=== PATIENT | female | born 1980 | race Caucasian/White ===

== ENCOUNTER 2017-11-10 11:57 | Outpatient (CLI) | payer OTHER | END 2017-11-10 11:58 | disposition home or self-care (01) | LOC: LAB.R 11:57 | PROVIDERS: ATTEND Registered Nurse | DX: Z36.9 Encounter for antenatal screening, unspecified (principal) | CPT/HCPCS: 87491; 87591 ==

== ENCOUNTER 2017-11-10 12:16 | Outpatient (CLI) | payer OTHER ==
[2017-11-10 12:57] LABS: BILIRUBIN,URINE NEGATIVE (NEGATIVE); GLUCOSE, URINE (UA) NEGATIVE (NEGATIVE); KETONES,URINE (UA) NEGATIVE (NEGATIVE); LEUKOCYTE ESTERASE, URINE NEGATIVE (NEGATIVE); NITRITE,URINE NEGATIVE (NEGATIVE); OCCULT BLOOD,URINE NEGATIVE (NEGATIVE); PH,URINE 6.5 PH (5.0-7.5); PROTEIN,URINE NEGATIVE (NEGATIVE); UROBILINOGEN,URINE 0.2 (NORMAL) E.U./dL (NORMAL)
[2017-11-10 12:59] LABS: BASOPHILS % (AUTO) 0.4 %; EOSINOPHILS % (AUTO) 0.4 %; HGB - HEMOGLOBIN 12.8 g/dL (12.0-16.0); LYMPHOCYTES # (AUTO) 1.9 10^3/uL (1.5-3.5); LYMPHOCYTES % (AUTO) 31.4 %; MEAN CORPUSCULAR HEMOGLOBIN 30.7 pg (27.0-31.0); MEAN CORPUSCULAR HGB CONC 34.5 g/dL (32.0-36.0); MEAN CORPUSCULAR VOLUME 88.9 fL (81.0-99.0); MEAN PLATELET VOLUME 7.9 fL (7.9-10.8); MONOCYTES # (AUTO) 0.3 10^3/uL (0.0-1.0); MONOCYTES % (AUTO) 5.4 %; NEUTROPHILS # (AUTO) 3.7 10^3/uL (1.5-6.6); NEUTROPHILS % (AUTO) 62.4 %; PLT - PLATELET COUNT 210 10^3/uL (130-450); RED BLOOD COUNT 4.18 10^6/uL (4.20-5.40); RED CELL DISTRIBUTION WIDTH 13.4 % (12.0-15.0); WHITE BLOOD COUNT 5.9 x10^3/uL (4.8-10.8)
[2017-11-10 13:04] LABS: BACTERIA,URINE Rare /HPF (None Seen); CLARITY,URINE CLEAR (CLEAR); RBC,URINE 0-5 /HPF (0-5); SQUAMOUS EPITHELIAL CELL,UR FEW Squamous (<= Few)
[2017-11-10 13:25] LABS: ALBUMIN 3.8 g/dL (3.2-5.5); ALBUMIN/GLOBULIN RATIO 1.1 (1.0-2.2); BILIRUBIN,TOTAL 0.4 mg/dL (0.2-1.0); CALCIUM 8.7 mg/dL (8.5-10.3); CREATININE 0.5 mg/dL (0.4-1.0); TOTAL PROTEIN 7.4 g/dL (6.7-8.2)
[2017-11-11 10:51] LABS: PROGESTERONE 35.3 ng/mL
[2017-11-11 12:41] LABS: HIV AG/AB 4TH GEN NON-REACTIVE (NON-REACTIVE)
[2017-11-11 15:26] LABS: HEPATITIS B SURFACE ANTIGEN NON-REACTIVE (NON-REACTIVE)
== END 2017-11-10 12:17 | disposition home or self-care (01) ==
LOC: LAB 12:16
PROVIDERS: ATTEND Registered Nurse
DX: E83.01 Wilson's disease (principal); Z36.9 Encounter for antenatal screening, unspecified
CPT/HCPCS: 36415; 80053; 81001; 81599; 82525; 82672; 84144; 84630; 85025; 86592; 86762; 86850; 86900; 86901; 87340; 87389

== ENCOUNTER 2017-11-17 13:56 | Outpatient (CLI) | payer OTHER | END 2017-11-17 13:57 | disposition home or self-care (01) | LOC: LAB 13:56 | PROVIDERS: ATTEND Registered Nurse | DX: Z01.89 Encounter for other specified special examinations (principal); E83.01 Wilson's disease | CPT/HCPCS: 36415 ==

== ENCOUNTER 2017-12-19 13:43 | Outpatient (CLI) | payer OTHER ==
[2017-12-19 14:10] LABS: BASOPHILS % (AUTO) 0.2 %; EOSINOPHILS # (AUTO) 0.1 10^3/uL (0.0-0.7); EOSINOPHILS % (AUTO) 0.7 %; HGB - HEMOGLOBIN 13.6 g/dL (12.0-16.0); LYMPHOCYTES # (AUTO) 1.6 10^3/uL (1.5-3.5); LYMPHOCYTES % (AUTO) 14.6 %; MEAN CORPUSCULAR HGB CONC 34.6 g/dL (32.0-36.0); MEAN CORPUSCULAR VOLUME 89.7 fL (81.0-99.0); MEAN PLATELET VOLUME 7.4 fL (7.9-10.8); MONOCYTES # (AUTO) 0.6 10^3/uL (0.0-1.0); MONOCYTES % (AUTO) 5.4 %; NEUTROPHILS # (AUTO) 8.5 10^3/uL (1.5-6.6); NEUTROPHILS % (AUTO) 79.1 %; PLT - PLATELET COUNT 246 10^3/uL (130-450); RED CELL DISTRIBUTION WIDTH 13.4 % (12.0-15.0); WHITE BLOOD COUNT 10.8 x10^3/uL (4.8-10.8)
[2017-12-19 14:25] LABS: ALBUMIN 3.5 g/dL (3.2-5.5); BILIRUBIN,DIRECT 0.1 mg/dL (0.1-0.5); BILIRUBIN,TOTAL 0.7 mg/dL (0.2-1.0); CREATININE 0.6 mg/dL (0.4-1.0); TOTAL PROTEIN 7.7 g/dL (6.7-8.2)
== END 2017-12-19 13:44 | disposition home or self-care (01) ==
LOC: LAB 13:43
PROVIDERS: ATTEND Internal Medicine Gastroenterology
DX: E83.01 Wilson's disease (principal)
CPT/HCPCS: 36415; 80076; 82525; 82565; 85025

== ENCOUNTER 2018-01-11 09:24 | Outpatient (CLI) | payer OTHER ==
--- NOTE | 2018-01-13 13:25 | Ultrasound Report ---
OB DETAILED ANATOMIC SCREENIN01/11/2018 COMPARISON: None. INDICATION: Anatomic screen. TECHNIQUE: Real-time scanning was performed with media sales representative static images obtained. LAST MENSTRUAL PERIOD 09/06/2017 Clinical Age 18 weeks 1 day US Age 18 weeks 0 days EFW [place] 217 grams EFW% Hadlock 33% Heart Rate 152 bpm EDC 06/13/2018 US EDC 06/14/2018 BPD [place] 17 weeks 6 days; Mean mm 39 HC [place] 18 weeks 3 days; Mean mm 155 AC [place] 18 weeks 1 day; Mean mm 125 FL [place] 17 weeks 5 days; Mean mm 25 Presentation -- Placental Location anterior L Cervical Length 4.8 cm Amniotic Fluid 13.5 cm; subjectively normal; MVP 3.9 cm FINDINGS The following structures were visualized and have a normal appearance: Choroid plexus, lateral ventricles, midline falx, cavum septum pellucidum, cisterna magna, cerebellum, nuchal fold, nasal bone, coronal face, nose, lips, open hands, cardiac situs, 4 chamber heart , left and right ventricular outflow tracts, stomach and situs, heart, stomach, bladder, diaphragm, kidneys, bladder, cord insertion, spine, upper and lower extremities, bilateral leg foot relationships. Maternal structures appear unremarkable, uterus, cervix, adnexa. No free fluid. Cervical length, 4.8 cm. IMPRESSION: SINGLE VIABLE INTRAUTERINE WITH SIZE CONCORDANT WITH DATES. NO ANOMALIES. TD: 01/11/2018 11:34 MTDD
== END 2018-01-11 09:25 | disposition home or self-care (01) ==
LOC: DI 09:24
PROVIDERS: ATTEND Registered Nurse
DX: Z36.9 Encounter for antenatal screening, unspecified (principal)
CPT/HCPCS: 76811

== ENCOUNTER 2018-02-28 08:00 | Outpatient (CLI) | payer OTHER | END 2018-02-28 08:01 | disposition home or self-care (01) | LOC: LAB.R 08:00 | PROVIDERS: ATTEND Internal Medicine Gastroenterology | DX: E83.01 Wilson's disease (principal) | CPT/HCPCS: 81599; 82525 ==

== ENCOUNTER 2018-03-16 13:59 | Outpatient (CLI) | payer OTHER ==
[2018-03-16 15:29] LABS: HGB - HEMOGLOBIN 11.9 g/dL (12.0-16.0); MEAN CORPUSCULAR HEMOGLOBIN 31.7 pg (27.0-31.0); MEAN CORPUSCULAR HGB CONC 33.9 g/dL (32.0-36.0); MEAN CORPUSCULAR VOLUME 93.7 fL (81.0-99.0); MEAN PLATELET VOLUME 7.4 fL (7.9-10.8); RED BLOOD COUNT 3.75 10^6/uL (4.20-5.40); RED CELL DISTRIBUTION WIDTH 13.1 % (12.0-15.0); WHITE BLOOD COUNT 8.6 x10^3/uL (4.8-10.8)
== END 2018-03-16 14:00 | disposition home or self-care (01) ==
LOC: LAB 13:59
PROVIDERS: ATTEND Registered Nurse
DX: Z34.82 Encounter for supervision of other normal pregnancy, second trimester (principal)
CPT/HCPCS: 36415; 82950; 85027; 86850

== ENCOUNTER 2018-05-02 11:55 | Outpatient (CLI) | payer OTHER ==
[2018-05-02 13:24] LABS: ALBUMIN 2.8 g/dL (3.2-5.5); ALKALINE PHOSPHATASE 126 IU/L (42-121); ALT ALANINE AMINOTRANSFERASE 12 IU/L (10-60); AST ASPARTATE AMINOTRANSFERASE 18 IU/L (10-42); BILIRUBIN,TOTAL 0.6 mg/dL (0.2-1.0); TOTAL PROTEIN 6.8 g/dL (6.7-8.2)
[2018-05-02 13:41] LABS: BILIRUBIN,DIRECT < 0.1 mg/dL (0.1-0.5)
== END 2018-05-02 11:56 | disposition home or self-care (01) ==
LOC: LAB 11:55
PROVIDERS: ATTEND Registered Nurse
DX: L29.8 Other pruritus (principal)
CPT/HCPCS: 36415; 80076; 82239

== ENCOUNTER 2018-05-10 14:39 | Outpatient (CLI) | payer OTHER ==
[2018-05-10 14:48] VITALS: BP 115/67
== END 2018-05-10 15:44 | disposition home or self-care (01) ==
LOC: WFO 14:39 → FBP 14:41 → WFO 15:44
PROVIDERS: ATTEND Nurse Practitioner Obstetrics & Gynecology
DX: O26.613 Liver and biliary tract disorders in pregnancy, third trimester (principal); K83.1 Obstruction of bile duct; Z3A.35 35 weeks gestation of pregnancy
CPT/HCPCS: 59025

== ENCOUNTER 2018-05-10 15:20 | Outpatient (CLI) | payer OTHER | END 2018-05-10 23:59 | LOC: LAB.R 15:20 | PROVIDERS: ATTEND Nurse Practitioner Obstetrics & Gynecology | DX: Z36.9 Encounter for antenatal screening, unspecified (principal) | CPT/HCPCS: 87081 ==

== ENCOUNTER 2018-05-16 15:57 | Outpatient (CLI) | payer OTHER ==
[2018-05-16 16:24] VITALS: BP 102/65
== END 2018-05-16 16:30 | disposition home or self-care (01) ==
LOC: WFO 15:57 → FBP 16:17 → WFO 16:30
PROVIDERS: ATTEND Registered Nurse
DX: O26.613 Liver and biliary tract disorders in pregnancy, third trimester (principal); K83.1 Obstruction of bile duct; Z3A.36 36 weeks gestation of pregnancy
CPT/HCPCS: 59025

== ENCOUNTER 2018-05-19 15:54 | Outpatient (CLI) | payer OTHER ==
[2018-05-19 16:17] VITALS: BP 95/53
== END 2018-05-19 16:55 | disposition home or self-care (01) ==
LOC: WFO 15:54 → FBP 15:56 → WFO 16:55
PROVIDERS: ATTEND Registered Nurse
DX: O26.613 Liver and biliary tract disorders in pregnancy, third trimester (principal); K83.1 Obstruction of bile duct; Z3A.37 37 weeks gestation of pregnancy
CPT/HCPCS: 59025

== ENCOUNTER 2018-05-23 20:52 | Inpatient (IN) | payer OTHER ==
[~2018-05-23 20:52] MED LIST: SODIUM CHLORIDE FLUSH 0.9% 10 ML SYRINGE IVP PRN
--- NOTE | 2018-05-23 22:47 | HISTORY & PHYSICAL EXAMINATION ---
Admit History - Instructions [place]/Slash: -Left hand click circles element as positive or present. -Right hand click slashes element as negative or not present. - Visit Reason Visit Reason: Other - : 4 Parity: 2 Premature: 0 Ectopic: 0 : 1 Care: positive: [facility] Risk/History: positive: ABO incompatibility, Labor induction Complications This : positive: Other Smoking Status: Never smoker - Mother's Labs Mother's Blood Type: positive: O Mother's RH: positive: Negative GBS: positive: Group B Step Negative Rubella Status: positive: Immune - Other Maternal History Other Maternal History: HPI: This 37yo presents at 37.0wks gestation by L=9wk U/S for IOL secondary to intrahepatic cholestasis in . Upon evaluation she was noted to be 1/25/-2, posterior, medium, vertex, intact membranes. She was placed in an observation status and will begin misoprostol 50mcg BC q 4 hours for cervical ripening. Dating criteria: 1.) LMP 09/06/2017 2.) First ultrasound 11/10/17 @ 9wks - agrees 3.) Serial exams 11-36 weeks - agree OB History: G1: 2010 FAVD w/ episiotomy at 39 weeks. 7#13oz male - Maykel. PPH requiring D& C G2: 2012 w/ episiotomy at 41 weeks gestation. IOL secondary to postdates . 8#9oz. Female - Vinh. G3: 2015 SAB @ 8 weeks gestation. No complications. G4: Current MEDICAL OFFICE SUPERVISOR History: Regular cycle. Menses age 11 STD's - none MEDICAL OFFICE SUPERVISOR surgeries: none Abnormal paps and treatment: 09/2017 pap HRHPV followed by colposcopy -ALEXYS-1. PMHx: Blake's Disease- Galzin 75mg PO. Von Willebrand's disease Medications: Ursodiol 300mg PO tid, PNV, Galzin 75mg PO Surgical Hx: none Family Hx: Blake's disease- mother; Maternal grandmother - Breast cancer; Paternal grandfather - diabetes mellitus. Social Hx: - Rey deployed to [place] - will return home in July. Never smoker. No ETOH or IVDA. Allergies: NKDA Physical Exam: Heart RRR w/o M/G/R, lungs CTAB Abdomen gravid, nontender FHR baseline 130s, moderate variability, + accels, no decels No contractions appreciated on toco SVE 11/24/-2, vertex, posterior, medium consistency, intact membranes. labs: Blood type O neg, antibody neg Hgb 12.8; Hct 37.2; PLT 210 Rubella immune HIV non-reactive GC/CT: negative Hep B: non-reactive RPR: non-reactive Baseline LFTs WNL [place] genetic screening negative 28 week labs: Hgb 11.9; Hct 35.1; PLT 240 Antibody negative 1 hour GTT 107 GBS negative Influenza 11/25/2017 Rhogam 03/21/2018 Tdap 04/04/2018 05/16/2018 LFTs WNL; Bile Acids 25 Ultrasounds: 01/17/18 FAS WNL, size c/w dating. Anterior placenta, no previa. Assessment: 37yo @ 37.0wks gestation by L=9wk U/S Intrahepatic cholestasis in GBS negative Desires epidural for pain management Plan: Continuous monitoring Misoprostol 50mcg BC q 4 hours for cervical ripening Will initiate pitocin per protocol when favorable cervix is reached Ambien 10mg PO tonight for sleep aid. Will suppress at delivery secondary to Galzin contraindicated for . Anticipate spontaneous vaginal delivery. Meds/Allgy - Home Medications Home Medications: Ambulatory Orders Medication Instructions Recorded Confirmed Acyclovir [Acyclovir] 400 mg ORAL TID 05/23/18 05/23/18 Pnv No.122/Iron/Folic Acid 1 each PO DAILY 05/23/18 05/23/18 [ Multi Tablet] Ursodiol 300 mg PO TID 05/23/18 05/23/18 Zinc Acetate [Galzin] 75 mg ORAL BID 05/23/18 05/23/18 hydrOXYzine HCl [Hydroxyzine HCl] 50 mg ORAL DAILY PM 05/23/18 05/23/18 - Allergies Allergies/Adverse Reactions: Allergies Allergy/AdvReac Type Severity Reaction Status Date / Time No Known Drug Allergies Allergy Verified 05/16/18 16:19
[2018-05-23] MEDS: miSOPROStol 100 MCG TABLET BC SCH (22:48)
[2018-05-23] MEDS ORDERED: ZOLPIDEM 5 MG TABLET PO PRN (22:49)
[2018-05-23] MEDS: SODIUM CHLORIDE FLUSH 0.9% 10 ML SYRINGE IVP SCH (22:53)
[2018-05-23 23:19] LABS: BASOPHILS % (AUTO) 0.2 %; EOSINOPHILS # (AUTO) 0.1 10^3/uL (0.0-0.7); EOSINOPHILS % (AUTO) 0.6 %; HGB - HEMOGLOBIN 11.5 g/dL (12.0-16.0); LYMPHOCYTES # (AUTO) 2.6 10^3/uL (1.5-3.5); LYMPHOCYTES % (AUTO) 27.9 %; MEAN CORPUSCULAR HEMOGLOBIN 30.8 pg (27.0-31.0); MEAN CORPUSCULAR HGB CONC 33.3 g/dL (32.0-36.0); MEAN CORPUSCULAR VOLUME 92.4 fL (81.0-99.0); MEAN PLATELET VOLUME 8.6 fL (7.9-10.8); MONOCYTES # (AUTO) 0.6 10^3/uL (0.0-1.0); MONOCYTES % (AUTO) 6.7 %; NEUTROPHILS % (AUTO) 64.6 %; PLT - PLATELET COUNT 207 10^3/uL (130-450); RED BLOOD COUNT 3.74 10^6/uL (4.20-5.40); RED CELL DISTRIBUTION WIDTH 13.3 % (12.0-15.0); WHITE BLOOD COUNT 9.3 x10^3/uL (4.8-10.8)
[2018-05-24] MEDS: ACYCLOVIR 200 MG CAPSULE PO SCH ×3 (00:37→20:29)
[2018-05-24] MEDS: miSOPROStol 100 MCG TABLET BC SCH ×3 (03:09→12:48)
[2018-05-24] MEDS: URSODIOL 250 MG TABLET PO SCH ×2 (06:09→20:30)
--- NOTE | 2018-05-24 15:20 | PROVIDER PROGRESS NOTE ---
Labor Progress Note - Uterine Monitoring Uterine Monitoring Mode: positive: External toco Contraction Frequency (min/apart): intermittent Contraction Intensity: positive: Moderate Uterine Resting Tone: positive: Soft - Monitoring Monitor Mode: positive: External ultrasound Heart Rate Baseline: 140 Heart Rate Variability: positive: Moderate (6-25 bmp) Accelerations: positive: Present, 15x15 Decelerations: positive: None Strip Review: positive: Category I - Vaginal Exam Dilation (in cm): 2-3 Effacement (%): 75 Station: 0 Cervical Position: Midposition - Labor Progress Note Labor Progress Note/Additional Text: S: Sitting comfortably in bed with friend Janene supportive at the bedside. She is starting to feel more discomfort with contractions. Desires epidural placement following initiation of pitocin. Mood is good. Feeling good now that her parents are taking care of her kids. O: BP 103/73, HR 60, RR16. Afebrile. SVE 2-3/75/0, vertex, medium, midposition. FHR baseline 140s, moderate variability, + accels, no decels. Contractions palpate strong intermittently. Difficult to appreciate on toco. Pt reports contractions q 4-5 minutes. Soft resting tone. A: 37yo @ 37.1wks gestation Intrahepatic cholestasis in GBS neg FHR category I Blake's disease P: Continuous monitoring Initiate pitocin and titrate per protocol for IOL secondary to cholestasis Nitrous oxide use per maternal request. Epidural per maternal request. Anticipate spontaneous vaginal delivery.
[2018-05-24] MEDS ORDERED: OXYTOCIN/SODIUM CHLORIDE 500 ML IV SCH (16:00)
[2018-05-24] MEDS: LACTATED RINGERS 1,000 ML IV SCH ×4 (16:00→23:38)
--- NOTE | 2018-05-24 18:01 | PROVIDER PROGRESS NOTE ---
Labor Progress Note - Uterine Monitoring Uterine Monitoring Mode: positive: External toco Contraction Frequency (min/apart): 2-4 Contraction Intensity: positive: Moderate Uterine Resting Tone: positive: Soft - Monitoring Monitor Mode: positive: External ultrasound Heart Rate Baseline: 140 Heart Rate Variability: positive: Moderate (6-25 bmp) Accelerations: positive: Present, 15x15 Decelerations: positive: None Strip Review: positive: Category I - Labor Progress Note Labor Progress Note/Additional Text: S: Patient lying comfortably on left side. She is feeling increased pressure and discomfort with contractions. Feeling lower back discomfort with contractions. Mood is good. Intermittently using Nitrous Oxide for pain management. O: BP 104/61, HR 56: RR16; Pitocin @ 2. SVE deferred. FHR baseline 130s, moderate variability, + accels, no decels. Contractions palpate moderate every 2 -4 minutes with soft resting tone. A: 37yo @ 37.1wks gestation Intrahepatic cholestasis in Pitocin IOL secondary to cholestasis S/p Misoprostol 50mcg BC q 4 hrs x 3 doses. GBS neg FHR category I P: Continuous monitoring Continue pitocin titration per protocol Nitrous oxide for pain management Epidural per maternal request Repeat SVE in 4 hours or sooner PRN. Anticipate spontaneous vaginal delivery.
[2018-05-24] MEDS ORDERED: ROPIVACAINE 0.2% PF 20 ML AMPULE ONE ×2 (21:11→22:42)
[2018-05-24] MEDS ORDERED: fent/BUPIV 2 MCG/0.125% 250 ML EP ONE (21:11)
[2018-05-24] MEDS ORDERED: fentaNYL 100 MCG/2 ML VIAL ONE (22:02)
[2018-05-24] MEDS ORDERED: LACTATED RINGERS 500 ML IV ONE (22:26)
[2018-05-24] MEDS ORDERED: ONDANSETRON 4 MG/2 ML VIAL IVP PRN (22:26)
[2018-05-24] MEDS ORDERED: ePHEDrine 50 MG/ML VIAL IVP PRN (22:26)
[2018-05-24] MEDS ORDERED: METOCLOPRAMIDE 10 MG/2 ML VIAL IVP PRN (22:26)
[2018-05-24] MEDS ORDERED: diphenhydrAMINE INJ 50 MG/ML VIAL IVP PRN (22:26)
[2018-05-24] MEDS ORDERED: NALOXONE 0.4 MG/ML VIAL IVP PRN (22:26)
[2018-05-24] MEDS ORDERED: fent/BUPIV 2 MCG/0.125% 250 ML EP PRN ×2 (22:26→23:07)
[2018-05-24] MEDS ORDERED: NALBUPHINE 10 MG/ML AMP IVP PRN (22:26)
--- NOTE | 2018-05-25 00:08 | PROVIDER PROGRESS NOTE ---
Labor Progress Note - Uterine Monitoring Uterine Monitoring Mode: positive: External toco Contraction Frequency (min/apart): 2-3 Contraction Intensity: positive: Strong Uterine Resting Tone: positive: Soft - Monitoring Monitor Mode: positive: External ultrasound Heart Rate Baseline: 130 Heart Rate Variability: positive: Moderate (6-25 bmp) Accelerations: positive: Present, 15x15 Decelerations: positive: None Strip Review: positive: Category I - Vaginal Exam Dilation (in cm): 4 Effacement (%): 75 Station: 0 Cervical Position: Anterior - Labor Progress Note Labor Progress Note/Additional Text: S: Laying in bed on left side. Feeling some discomfort with contractions despite epidural anesthesia. Mood is good. Friend Janene supportive at the bedside. O: BP normotensive, afebrile. SVE 4/75/0, vertex, anterior, soft. FHR baseline 135, moderate variability, early decelerations to 120s, + accels. Contractions palpate moderate every 2-4 min with soft resting tone. Intermittently coupling pattern of contractions. Pitocin @ 4. A: 37yo @ 37.1wks gestation Pitocin IOL secondary to intrahepatic cholestasis in . S/p effective cervical ripening AROM x 16hrs - afebrile GBS neg P: Continue titration of pitocin per protocol Continued attempts to achieve adequate pain control with position change and ENGRAVER ORNAMENTAL DESIGN evaluation of epidural. Liz Schaffer, REBECA notified and en route to bolus epidural. Continuous monitoring. Reevaluate/Repeat SVE in 4 hours or sooner PRN. Pt verbalized understanding and agrees to above plan. She denies questions or concerns at this time. Anticipate spontaneous vaginal delivery.
[2018-05-25] MEDS ORDERED: fentaNYL 100 MCG/2 ML VIAL ONE (00:35)
[2018-05-25] MEDS ORDERED: BUPIVACAINE 0.25% PF 10 ML VIAL ONE (00:35)
[2018-05-25] MEDS ORDERED: BUPIVACAINE 0.5% PF 10 ML VIAL ONE (01:07)
[2018-05-25] MEDS: LACTATED RINGERS 1,000 ML IV SCH (01:25)
--- NOTE | 2018-05-25 02:14 | DELIVERY NOTE ---
Delivery Note - Labor Labor: positive: Induced by ARM, Induced by oxytocin - Infant Delivery Method Delivery Method: positive: Spontaneous vaginal delivery - Presentation Presentation: positive: Vertex, KUNAL - left occiput anterior - Nuchal Cord Nuchal Cord: positive: Present, Reduced - Amniotic Fluid Description Amniotic Fluid Description: positive: Clear - Episiotomy Type Episiotomy Type: positive: None - Laceration Laceration: positive: 1st degree - Suture Suture Type: positive: Vicryl Suture Size: positive: 2-0 - Delivery Outcome Delivery Outcome: positive: Livebirth - Goodman Goodman: positive: Placed in direct skin contact with mother, Bulb syringe, Stimulated, Warmed, Warmer used Goodman sex: positive: Male - Cord Cord: positive: 3 vessels - Placenta Placenta: positive: Intact, Spontaneous - Estimated Blood Loss Estimated Blood Loss (in cc): 250 - Post Delivery Events Post Delivery Events: positive: No post delivery events - Delivery Comments (Free Text/Narrative) Delivery Comments (Free Text/Narrative): Labor: This 37yo @ 37.2wks gestation by LMP presented for IOL on 2017 secondary to intrahepatic cholestasis in . Cervix was 1/50/-2, vertex, posterior. he was given 50mcg misoprostol BC q 4 hrs for a total of 3 doses. AROM at approximately 0830 on 05/24/2018 for a moderate amount of clear fluid. Pt progressed to 3/75/0, vertex, midposition, soft and pitocin was initiated and titrated per protocol for IOL for a max infusion of Pitocin @ 4. Epidural placed upon maternal request with minimal pain coverage. Patient progressed rapidly from 6cm dilation to complete with strong urge to push at 0138. Normal of viable male infant on 05/25/2018 at 0141. Tight nuchal cord x 2 - delivered through and body cord x1. True knot x1. The appeared stunned with poor tone and color and no respiratory effort. Minimal and sporadic pulsation to umbilical cord. The umbilical cord was immediately clamped and cut and taken to infant warmer. PPV administered x 2 min and CPAP x 8 min. 's were 4/6/9 at 1, 5 and 9 min respectively. Cord blood was obtained. Placenta delivered spontaneously and intact at 0144. 3VC. Pitocin administered via IV for hemostasis. EBL 250mL. Uterine fundus firm and there is no excessive bleeding. The perineum, vagina, and cervix were inspected and found to have a first degree laceration. Lidocaine was infiltrated for adequate local anesthetic and 2-[address]- 1 needle was used to repair in standard fashion under sterile conditions. Vaginal examination following the repair was done. Tissues well approximated. Family bonding well. Both mother and baby were left in stable condition.
[2018-05-25] MEDS ORDERED: OXYTOCIN/SODIUM CHLORIDE 250 ML IV ONE (02:41)
[2018-05-25] MEDS ORDERED: CABERGOLINE 0.5 MG TABLET PO ONE (02:41)
[2018-05-25] MEDS ORDERED: WITCH HAZEL/GLYCERIN 1 EACH MED..PAD TOP PRN (02:41)
[2018-05-25] MEDS ORDERED: HYDROCORTISONE/PRAMOXINE 10 GM PR PRN (02:41)
[2018-05-25] MEDS ORDERED: LIDOCAINE 1% 50 ML MDV TD ONE (02:43)
[2018-05-25] MEDS: IBUPROFEN 800 MG TABLET PO SCH ×3 (02:59→17:12)
[2018-05-25] MEDS: SODIUM CHLORIDE FLUSH 0.9% 10 ML SYRINGE IVP SCH ×2 (03:51→05:28)
--- NOTE | 2018-05-25 09:10 | PROVIDER PROGRESS NOTE ---
Subjective - Subjective Subjective: S: Bonding well with baby. Bottle feeding without difficulty. Feeling some soreness but overall pain is well controlled. Bleeding minimal. Moderate cramping. O: Heart RRR w/o M/G/R, lungs CTAB, abdomen soft and nontender with fundus firm at U. Bilateral LE's no edema. A: 37yo -->P3 s/p TSVD of viable male infant Bottle feeding Intrahepatic cholestasis in - no itching. P: Continue routine pp care and medications Plan discharge home tomorrow. Objective - Vital Signs/Intake & Output Vital Signs: Vital Signs x48h Temp Pulse Resp BP Pulse Ox 05/25/18 08:30 36.7 C 64 16 122/48 L 98 05/25/18 05:30 51 L 16 104/51 L 97 05/25/18 04:30 36.7 C 63 16 125/58 L 100 05/25/18 03:30 56 L 16 117/70 98 05/25/18 03:16 67 16 115/64 99 05/25/18 03:00 67 16 140/64 H 99 05/25/18 02:45 69 16 122/79 100 05/25/18 02:30 59 L 16 134/66 H 99 05/25/18 02:15 61 18 130/66 99 05/25/18 02:00 72 16 135/88 H 98 Intake & Output: Intake & Output 05/22/18 05/23/18 05/24/18 05/25/18 23:59 23:59 23:59 23:59 Intake Total 600 7185.697 1772.833 Output Total 750 900 950 Balance -150 167.834 723.833 - Lab Results Fish Bones: 05/23/18 22:30
[2018-05-25] MEDS: ACETAMINOPHEN 325 MG TABLET PO PRN ×2 (09:13→17:12)
[2018-05-25] MEDS: DOCUSATE SODIUM 100 MG CAPSULE PO SCH ×2 (09:13→22:01)
--- NOTE | 2018-05-25 13:32 | ANESTHESIA POST OP EVALUATION ---
Anesthesia Post Eval - Post Anesthesia Eval CV Function Including HR & BP: positive: Stable : : : Pain Control: positive: Adequate Nausea & Vomiting: positive: Negative : Mental Status: positive: Appropriate Anesthesia Complications: positive: None
[2018-05-26] MEDS: IBUPROFEN 800 MG TABLET PO SCH ×2 (03:06→10:06)
[2018-05-26] MEDS: ACETAMINOPHEN 325 MG TABLET PO PRN ×2 (03:06→10:07)
[2018-05-26] MEDS: DOCUSATE SODIUM 100 MG CAPSULE PO SCH (10:06)
--- NOTE | 2018-05-26 13:43 | Discharge Plan ---
Discharge Plan Disposition: 01 Home, Self Care Condition: Good Diet: Regular Activity Restrictions: No Restrictions Shower Restrictions: No Driving Restrictions: No No Smoking: If you smoke, Please STOP! Call for help. Follow-up with: Amarilis Greenfield CNM, ARNP [Provider Admit Priv/Credential] -
--- NOTE | 2018-05-26 13:48 | PROVIDER PROGRESS NOTE ---
Subjective - Subjective Subjective: FINAL PROGRESS NOTE: S: Bonding well with baby. Bottle feeding without difficulty. Pain well controlled with ibuprofen. Bleeding decreased and is light. O: BP 106/66, HR 55, T 36.7, RR 18 Heart RRR w/o M/G/R, lungs CTAB, Abdomen soft and nontender with fundus firm at U-2. Bilateral LE's no edema. Perineum intact. A: 37yo -->P3 s/p TSVD of viable male over first degree laceration Perineum intact Bottlefeeding S/p Cholestasis in P: Repeat LFTs at 6 week pp visit. Reviewed self care and warning signs and symptoms. Discharge home today with instructions to take 800mg Ibuprofen 1 tab PO q 8 hrs PRN pain. She intends to f/u with myself at [facility] in 3 weeks or sooner PRN. She verbalized understanding and agrees to above plan. She denies further questions or concerns at this time. Objective - Vital Signs/Intake & Output Vital Signs: Vital Signs x48h Temp Pulse Resp BP Pulse Ox 05/26/18 07:49 36.7 C 67 18 97/58 L 99 Intake & Output: Intake & Output 05/23/18 05/24/18 05/25/18 05/26/18 23:59 23:59 23:59 23:59 Intake Total 600 3461.106 9736.833 Output Total 750 900 950 Balance -150 167.834 723.833 - Lab Results Fish Bones: 05/23/18 22:30
[2018-05-26 14:03] VITALS: BP 117/87
--- NOTE | 2018-05-30 07:08 | DISCHARGE SUMMARY ---
Physician: LEE ANN Cordero DATE OF ADMISSION: 05/23/2018 DATE OF DISCHARGE: 05/26/2018 DIAGNOSES ON ADMISSION: 1. A 37-year-old G4, P2-0-1-2 at 37 weeks' gestation. 2. Intrahepatic cholestasis in . 3. Group B streptococcus negative. 4. Cervical ripening in anticipation for induction of labor. DIAGNOSES ON DISCHARGE: 1. A 37-year-old G4, P3-0-1-3 status post spontaneous vaginal delivery on 05/25/2018. 2. Normal recovery. BRIEF HISTORY: She is a patient at [facility] who presented on 05/23/2018 for induc tion of labor secondary to intrahepatic cholestasis of . Cervix was 150 -2 vertex and poste rior. She was given misoprostol q.4 hours for a total of 3 doses for effective cervical ripening IRA M at 8:30 on 05/24/2018. The patient progressed to 375 0 station, mid position, soft. Pitocin was i nitiated and titrated per protocol for induction of labor for a max infusion of Pitocin at 4. Epidur al placed upon maternal request. The patient progressed rapidly from 6 cm dilation to complete with strong urge to push at 0138. Normal spontaneous vaginal delivery of viable male on 05/25/2018 at 0141. Apgars were 4, 6 and 9 at 1, 5 and 9 minutes respectively. EBL 250 mL. The perineum, vag christina and cervix were inspected and found to have a first-degree laceration, which was repaired under s terile conditions in the usual fashion. She has been doing well on her course. She is ambulating and tolerating a regular diet. She is urinating without difficulty and her lochia is normal. Her pain is well controlled with oral medications. She will be discharged home today on day #2 with prescriptions for ibuprofen . She intends to follow up with myself at [facility] in 3 weeks for a routine postp artum visit. She has been given precautions to call if she has any worsening fevers, chills, abdomin al pain, increased bleeding or foul smelling vaginal lochia. TD: 05/29/2018 10:40
== END 2018-05-26 14:25 | disposition home or self-care (01) | DRG 775 ==
LOC: WFO 20:52 → FBP 20:55 → OBSVTOIN 05-24 08:20 → OBS 05-25 16:20
PROVIDERS: ADMIT Nurse Practitioner Obstetrics & Gynecology; ATTEND Nurse Practitioner Obstetrics & Gynecology
PROC: 10907ZC Drainage of Amniotic Fluid, Therapeutic from Products of Conception, Via Natural or Artificial Opening (ICD-10-PCS; 2018-05-24)
PROC: 3E033VJ Introduction of Other Hormone into Peripheral Vein, Percutaneous Approach (ICD-10-PCS; 2018-05-24)
PROC: 10E0XZZ Delivery of Products of Conception, External Approach (ICD-10-PCS; principal; 2018-05-25)
PROC: 0HQ9XZZ Repair Perineum Skin, External Approach (ICD-10-PCS; 2018-05-25)
DX: O26.62 Liver and biliary tract disorders in childbirth (principal); K83.1 Obstruction of bile duct; O99.12 Other diseases of the blood and blood-forming organs and certain disorders involving the immune mechanism complicating childbirth; D68.0 Von Willebrand disease; O69.81X0 Labor and delivery complicated by cord around neck, without compression, not applicable or unspecified; O69.2XX0 Labor and delivery complicated by other cord entanglement, with compression, not applicable or unspecified; O70.0 First degree perineal laceration during delivery; O99.284 Endocrine, nutritional and metabolic diseases complicating childbirth; E83.01 Wilson's disease; Z3A.37 37 weeks gestation of pregnancy; Z37.0 Single live birth; Z87.410 Personal history of cervical dysplasia; Z79.899 Other long term (current) drug therapy
CPT/HCPCS: 85025

== ENCOUNTER 2018-11-23 13:01 | Emergency (ER) | payer OTHER ==
[2018-11-23 15:07] VITALS: BP 115/81
--- NOTE | 2018-11-23 15:32 | ED Physician Documentation ---
PD HPI URI - Stated complaint Stated Complaint: COUGH/HEADACHE - Chief complaint Chief Complaint: Resp - History obtained from History obtained from: Patient - History of Present Illness Timing - onset: Other (4 days non productive cough, Keeping her up at night. It is not associate with fevers, shortness of breath. She is not a smoker and she does not have asthma. She has children that are sick with URIs. No recent travel.) Review of Systems Constitutional: denies: Fever, Chills Ears: denies: Drainage/discharge Nose: denies: Rhinorrhea / runny nose, Congestion Throat: denies: Sore throat Cardiac: denies: Chest pain / pressure, Palpitations Respiratory: denies: Dyspnea PD PAST MEDICAL HISTORY - Past Medical History Past Medical History: No Cardiovascular: None Respiratory: None Neuro: None Endocrine/Autoimmune: None GI: None PRINCIPAL SOLUTIONS ARCHITECT: None : Benign prostate hypertrophy HEENT: None Psych: None Musculoskeletal: None Derm: None Other Past Medical History: Wilsons disease pm Galzyn (zinc acetate) - Present Medications Home Medications: Ambulatory Orders Medication Instructions Recorded Confirmed Pnv No.122/Iron/Folic Acid 1 each PO DAILY 05/23/18 11/23/18 [ Multi Tablet] Zinc Acetate [Galzin] 75 mg ORAL BID 05/23/18 11/23/18 Benzonatate [Tessalon Perle] 100 - 200 mg PO TID PRN #30 capsule 11/23/18 guaiFENesin/CODEINE [Robitussin AC] 5 - 10 ml PO Q6H PRN #120 ml 11/23/18 - Allergies Allergies/Adverse Reactions: Allergies Allergy/AdvReac Type Severity Reaction Status Date / Time No Known Drug Allergies Allergy Verified 11/23/18 13:08 - Social History Does the pt smoke?: No Smoking Status: Never smoker - Immunizations Immunizations are current?: Yes PD ED PE NORMAL - Vitals Vital signs reviewed: Yes - General General: Alert and oriented X 3, No acute distress - HEENT HEENT: Pharynx benign - Neck Neck: Supple, no meningeal sign, No bony TTP - Cardiac Cardiac: RRR, No murmur - Respiratory Respiratory: No respiratory distress, Clear bilaterally - Abdomen Abdomen: Non tender - Neuro Neuro: Alert and oriented X 3, Normal speech Results - Vitals Vitals: Vital Signs - 24 hr 11/23/18 11/23/18 13:07 15:05 Temperature 36.9 C 36.7 C Heart Rate 75 65 Respiratory 18 Rate Blood Pressure 115/63 115/81 H O2 Saturation 100 100 Oxygen O2 Source Room air Departure - Departure Disposition: 01 Home, Self Care Clinical Impression: Upper respiratory tract infection Qualifiers: URI type: unspecified viral URI Qualified Code(s): J06.9 - Acute upper respiratory infection, unspecified Condition: Good Record reviewed to determine appropriate education?: Yes Instructions: ED Upper Resp Infec No Abx Tx Prescriptions: Benzonatate [Tessalon Perle] 100 - 200 mg PO TID PRN #30 capsule PRN Reason: Cough guaiFENesin/CODEINE [Robitussin AC] 5 - 10 ml PO Q6H PRN #120 ml PRN Reason: Cough Comments: Return if you become short of breath, develop a high fever or other new or concerning symptoms. Follow-up with your doctor in 1-2 weeks if not better.
== END 2018-11-23 15:37 | disposition home or self-care (01) ==
LOC: ED 13:01
DX: J06.9 Acute upper respiratory infection, unspecified (principal)
CPT/HCPCS: 99283

== ENCOUNTER 2019-03-02 09:13 | Outpatient (CLI) | payer OTHER ==
[2019-03-02 09:35] LABS: BASOPHILS # (AUTO) 0.1 10^3/uL (0.0-0.1); BASOPHILS % (AUTO) 1.4 %; HGB - HEMOGLOBIN 13.4 g/dL (12.0-16.0); LYMPHOCYTES # (AUTO) 1.5 10^3/uL (1.5-3.5); LYMPHOCYTES % (AUTO) 38.6 %; MEAN CORPUSCULAR HEMOGLOBIN 31.2 pg (27.0-31.0); MEAN CORPUSCULAR HGB CONC 33.5 g/dL (32.0-36.0); MONOCYTES # (AUTO) 0.4 10^3/uL (0.0-1.0); MONOCYTES % (AUTO) 10.1 %; NEUTROPHILS # (AUTO) 1.9 10^3/uL (1.5-6.6); NEUTROPHILS % (AUTO) 48.9 %; PLT - PLATELET COUNT 220 10^3/uL (130-450); RED CELL DISTRIBUTION WIDTH 12.4 % (12.0-15.0); WHITE BLOOD COUNT 3.9 x10^3/uL (4.8-10.8)
[2019-03-02 09:50] LABS: ALBUMIN/GLOBULIN RATIO 1.4 (1.0-2.2); BILIRUBIN,TOTAL 0.7 mg/dL (0.2-1.0); CALCIUM 8.8 mg/dL (8.5-10.3); CREATININE 0.8 mg/dL (0.4-1.0); TOTAL PROTEIN 6.9 g/dL (6.7-8.2)
== END 2019-03-02 09:14 | disposition home or self-care (01) ==
LOC: LAB 09:13
PROVIDERS: ATTEND Internal Medicine Gastroenterology
DX: E83.01 Wilson's disease (principal)
CPT/HCPCS: 36415; 80053; 81599; 82525; 85025

== ENCOUNTER 2019-08-08 14:48 | Outpatient (CLI) | payer OTHER ==
[2019-08-08 15:28] LABS: T4 (THYROXINE) 6.15 ug/dL (6.09-12.23)
[2019-08-08 15:31] LABS: THYROID STIMULATING HORMONE 1.46 uIU/mL (0.34-5.60)
== END 2019-08-08 14:49 | disposition home or self-care (01) ==
LOC: LAB 14:48
PROVIDERS: ATTEND Nurse Practitioner Obstetrics & Gynecology
DX: R61 Generalized hyperhidrosis (principal)
CPT/HCPCS: 36415; 84436; 84443

== ENCOUNTER 2019-11-07 09:23 | Outpatient (CLI) | payer OTHER ==
[2019-11-07 10:03] LABS: ALBUMIN 4.2 g/dL (3.2-5.5); BILIRUBIN,DIRECT 0.1 mg/dL (0.1-0.5); BILIRUBIN,TOTAL 1.1 mg/dL (0.2-1.0); TOTAL PROTEIN 7.6 g/dL (6.7-8.2)
== END 2019-11-07 09:24 | disposition home or self-care (01) ==
LOC: LAB 09:23
PROVIDERS: ATTEND Internal Medicine Gastroenterology
DX: E83.01 Wilson's disease (principal)
CPT/HCPCS: 36415; 80076

== ENCOUNTER 2019-12-29 07:49 | Outpatient (CLI) | payer OTHER ==
[2019-12-29] MEDS ORDERED: IOVERSOL 320 50 ML VIAL ONE (07:54)
[2019-12-29] MEDS ORDERED: IOVERSOL 320 100 ML VIAL IVP ONE ×2 (07:54→09:16)
[2019-12-29] MEDS ORDERED: IOVERSOL 320 50 ML VIAL PO ONE (09:16)
--- NOTE | 2019-12-30 22:09 | CT Report ---
Reason: SEVERE NIGHT SWEATS, PHUC'S DISEASE Procedure Date: 12/29/2019 Accession Number: [id number] / [id number] Procedure: CT - Abdomen/Pelvis W CPT Code: Final Report FULL RESULT: EXAM: CT ABDOMEN AND PELVIS EXAM DATE: 12/29/2019 09:12 AM. CLINICAL HISTORY: SEVERE NIGHT SWEATS, PHUC'S DISEASE. COMPARISONS: None. TECHNIQUE: Routine helical CT imaging was performed through the abdomen and pelvis. IV contrast: 90 mL OPTIRAY 320. Enteric contrast: Yes. Reconstructions: Coronal and sagittal. In accordance with CT protocol optimization, one or more of the following dose reduction techniques were utilized for this exam: automated exposure control, adjustment of mA and/or KV based on patient size, or use of iterative reconstructive technique. FINDINGS: Lung Bases: No acute findings. Liver: Mildly enlarged craniocaudal size of right hepatic lobe measuring 21.7 cm. Liver otherwise unremarkable. No masses evident. No evidence of cirrhosis. Gallbladder/Bile Ducts: Unremarkable. Spleen: Unremarkable. Pancreas: Normal. Adrenal Glands: Normal. Kidneys: Mild pelviectasis or extrarenal pelves. No caliectasis or significant hydronephrosis. Kidneys otherwise unremarkable. No urinary calculi or mass. Peritoneal Cavity/Bowel: No bowel obstruction or significant bowel wall thickening. Moderate stool in colon. Visualized portions of appendix are normal. Trace free fluid in left pelvis. No free air or adenopathy. Pelvic Organs: Dominant follicle in right ovary measuring 1.9 cm. Uterus and adnexa otherwise unremarkable. Bladder within normal limits. Tampon in vaginal canal. Vasculature: Unremarkable as visualized. Bones: Unremarkable. No acute osseous abnormality. Other: None. IMPRESSION: 1. Mildly enlarged craniocaudal size of right hepatic lobe measuring 21.7 cm. This could be related to mild hepatomegaly in the setting of Phuc's disease or Loyda's lobe. Liver otherwise unremarkable without evidence of mass or cirrhosis. 2. Trace free fluid in left pelvis, nonspecific. 3. Otherwise unremarkable CT of the abdomen and pelvis. 4. Incidental note made of tampon in vaginal canal. RADIA
--- NOTE | 2019-12-31 00:30 | CT Report ---
Reason: SEVERE NIGHT SWEATS, WILSONS DISEASE Procedure Date: 12/29/2019 Accession Number: [id number] / [id number] Procedure: CT - CHEST W CPT Code: Final Report FULL RESULT: EXAM: CT CHEST EXAM DATE: 12/29/2019 09:12 AM. CLINICAL HISTORY: SEVERE NIGHT SWEATS, PHUC'S DISEASE. COMPARISONS: None. TECHNIQUE: Routine helical CT imaging was performed through the chest. IV contrast: 90 mL Optiray 320. Reconstructions: Coronal and sagittal. Other: MIP reconstructions. In accordance with CT protocol optimization, one or more of the following dose reduction techniques were utilized for this exam: automated exposure control, adjustment of mA and/or KV based on patient size, or use of iterative reconstructive technique. FINDINGS: Lungs/Pleura: No nodules, bronchial thickening, consolidation, or edema. No pleural effusion. No pneumothorax. Mediastinum: Soft tissue in the anterosuperior mediastinum is compatible with residual thymus. This measures up to 1.3 cm in thickness. No mediastinal lymphadenopathy. Great vessels appear unremarkable. Normal cardiac size. No pericardial effusion. Bones: Unremarkable. Visualized Abdomen: Unremarkable. Other: None. IMPRESSION: 1. No acute findings in the chest to account for symptoms. 2. Small amount of soft tissue in anterosuperior mediastinum is compatible with residual thymic tissue. [facility]
== END 2019-12-29 07:50 | disposition home or self-care (01) ==
LOC: DI 07:49
PROVIDERS: ATTEND Internal Medicine Gastroenterology
DX: R61 Generalized hyperhidrosis (principal); E83.01 Wilson's disease
CPT/HCPCS: 71260; 74177; Q9967

== ENCOUNTER 2020-01-01 09:26 | Outpatient (CLI) | payer OTHER | END 2020-01-01 09:27 | disposition home or self-care (01) | LOC: LAB 09:26 | PROVIDERS: ATTEND Internal Medicine Gastroenterology | DX: E83.01 Wilson's disease (principal) | CPT/HCPCS: 36415; 81599; 82525; 86480 ==